=== PATIENT | male | born 1950 | race Hispanic/Latino ===

== ENCOUNTER 2017-08-26 11:08 | Inpatient (IN) | payer OTHER ==
[~2017-08-26] VITALS: Ht 172.7 cm; Wt 103.6 kg
[2017-08-26 16:00] VITALS: BP_SYST 156; BP_SYST 177; BP_DIAS 101; BP_DIAS 106
[2017-08-26 16:14] LABS: APPEARANCE,URINE Clear (CLEAR); BILIRUBIN,URINE Negative (NEGATIVE); COLOR,URINE Yellow (YELLOW); GLUCOSE, URINE (UA) Negative (NEGATIVE); KETONES,URINE Negative (NEGATIVE); LEUKOCYTE ESTERASE ,URINE Negative (NEGATIVE); NITRATE,URINE Negative (NEGATIVE); OCCULT BLOOD,URINE Negative (NEGATIVE); PH,URINE 5.5 (5.0-8.0); PROTEIN,URINE Negative (NEGATIVE)
[2017-08-26 17:05] VITALS: BP 148/89
[2017-08-26] MEDS ORDERED: LEVO150T6 PO (17:26)
[2017-08-26] MEDS ORDERED: BRIM5DRO4 OU (17:26)
[2017-08-26] MEDS ORDERED: SILD100T PO (17:26)
[2017-08-26] MEDS ORDERED: SIMV40TA5 PO (17:26)
[2017-08-26] MEDS ORDERED: LATA2.5D2 OU (17:26)
[2017-08-26] MEDS ORDERED: LANR90SY SQ (17:26)
[2017-08-26] MEDS ORDERED: CITA40TA6 PO (17:26)
[2017-08-26] MEDS ORDERED: TRAZ-185 PO (17:26)
[2017-08-26] MEDS ORDERED: LISI10TA7 PO (17:26)
[2017-08-26] MEDS ORDERED: menthol/m-salicylate TP (17:26)
[2017-08-26] MEDS ORDERED: HYDR10TA14 PO (17:26)
[2017-08-26] MEDS ORDERED: HYDR20TA3 PO (17:26)
[2017-08-26] MEDS ORDERED: testosterone TP (17:28)
[2017-08-29] VITALS (19 sets, daily range): BP systolic 122–176; BP diastolic 72–114
[2017-08-29] MEDS ORDERED: CEFAZOLIN 3GM /D5W 100ML 100 ML IV SCH ×2 (06:00→17:30)
[2017-08-29] MEDS ORDERED: CEFAZOLIN SODIUM 1 GM VIAL ONE ×2 (08:18→08:58)
[2017-08-29] MEDS ORDERED: LACTATED RINGERS 1000ML 1,000 ML IV ONE (08:18)
[2017-08-29] MEDS ORDERED: METOCLOPRAMIDE 10 MG/2 ML VIAL ONE (08:28)
[2017-08-29] MEDS ORDERED: ACETAMINOPHEN EXTRA STRENGTH 500 MG TABLET ONE (08:28)
[2017-08-29] MEDS ORDERED: OXYCODONE HCL 10 MG TAB.SR.12H PO ONE (08:29)
[2017-08-29] MEDS ORDERED: CELECOXIB 200 MG CAP ONE (08:29)
[2017-08-29] MEDS ORDERED: KETOROLAC TROMETHAMINE 15MG/ML ONE (08:32)
[2017-08-29] MEDS ORDERED: EPINEPHRINE 1 MG/ML AMPULE ONE (08:58)
[2017-08-29] MEDS ORDERED: BUPIVACAINE/PF 0.25% 30ML VIAL IJ ONE (08:58)
[2017-08-29] MEDS ORDERED: TRANEXAMIC ACID 1000MG/10ML IV ONE (08:58)
[2017-08-29] MEDS ORDERED: PROPOFOL 10 MG/ML 20ML VIAL IV ONE (09:35)
[2017-08-29] MEDS ORDERED: FENTANYL CITRATE PF 50 MCG/1 ML 5ML AMP IV ONE (09:35)
[2017-08-29] MEDS ORDERED: MIDAZOLAM HCL 1 MG/ML 2ML VIAL ONE (09:35)
[2017-08-29] MEDS ORDERED: ROCURONIUM BROMIDE 10MG/1ML 5ML VL ONE ×2 (09:40→12:28)
[2017-08-29] MEDS ORDERED: NEOSTIGMINE 5MG/5ML SYR IV ONE (09:40)
[2017-08-29] MEDS ORDERED: SUCCINYLCHOLINE CHLORIDE 20 MG/ML 10 ML VIAL ONE ×2 (09:40→12:28)
[2017-08-29] MEDS ORDERED: HYDROCORTISONE SOD SUCCINATE 100 MG/2 ML VIAL ONE (10:37)
[2017-08-29] MEDS ORDERED: PHENYLEPHRINE HCL 10 MG/ML 1ML VIAL IV ONE ×2 (10:39→12:28)
[2017-08-29] MEDS ORDERED: LABETALOL HCL 5 MG/ML 20ML VIAL IV ONE (11:19)
[2017-08-29] MEDS ORDERED: ONDANSETRON HCL 4 MG/2 ML VIAL ONE (12:28)
[2017-08-29] MEDS ORDERED: SODIUM CHLORIDE 0.9% 10 ML VIAL ONE (12:28)
[2017-08-29] MEDS: SODIUM CHLORIDE 0.9% 1000ML 1,000 ML IV SCH (12:29)
[2017-08-29] MEDS ORDERED: POTASSIUM CHLORIDE 20MEQ/100ML 100 ML IV PRN (12:30)
[2017-08-29] MEDS ORDERED: FERROUS FUMARATE 324 MG TABLET PO PRN (12:30)
[2017-08-29] MEDS ORDERED: LIDOCAINE HCL-MPF 1% 2ML VIAL IVP PRN (12:30)
[2017-08-29] MEDS ORDERED: DiphenhydrAMINE HCL 50 MG/ML VIAL IVP PRN (12:30)
[2017-08-29] MEDS ORDERED: ONDANSETRON HCL 4 MG/2 ML VIAL IVP PRN (12:30)
[2017-08-29] MEDS ORDERED: POTASSIUM CHLORIDE 10% ELIXIR 20 MEQ/15 ML UDCUP PO PRN (12:30)
[2017-08-29] MEDS ORDERED: TRAMADOL HCL 50 MG TABLET PO PRN (12:30)
[2017-08-29] MEDS ORDERED: POTASSIUM CHLORIDE 20 MEQ ERTAB PO PRN (12:30)
[2017-08-29] MEDS: ACETAMINOPHEN EXTRA STRENGTH 500 MG TABLET PO SCH ×2 (12:30→21:03)
[2017-08-29] MEDS ORDERED: CALCIUM CARBONATE 500 MG TABLET PO PRN (12:30)
[2017-08-29] MEDS ORDERED: FENTANYL CITRATE PF 50 MCG/1 ML 2ML VIAL ONE (12:32)
[2017-08-29] MEDS ORDERED: RACEPINEPHRINE HCL 2.25% 0.5 ML NEB SOLN ONE (13:06)
[2017-08-29] MEDS ORDERED: NON-FORMULARY MEDICATION 1 EACH (Sildenafil Citrate (Viagra) 100 MG) PO PRN (15:00)
[2017-08-29] MEDS ORDERED: HYDRALAZINE HCL 20 MG/ML VIAL ONE (15:22)
[2017-08-29] MEDS ORDERED: MENTHOL TP PRN (16:15)
[2017-08-29] MEDS ORDERED: METHYL SALICYLATE TP PRN (16:15)
[2017-08-29] MEDS ORDERED: HYDRALAZINE HCL 20 MG/ML VIAL IV SCH (16:35)
[2017-08-29] MEDS ORDERED: CEFAZOLIN SODIUM 1 GM VIAL IVP SCH (17:30)
[2017-08-29] MEDS: HYDROCORTISONE 20 MG TABLET PO SCH (17:57)
[2017-08-29] MEDS: CEFAZOLIN 3GM /D5W 100ML 100 ML IV SCH (17:57)
[2017-08-29] MEDS: ASPIRIN 325 MG TABLET PO SCH (21:01)
[2017-08-29] MEDS: FAMOTIDINE 20MG TAB 20 MG TAB PO SCH (21:01)
[2017-08-29] MEDS: ATORVASTATIN CALCIUM 20 MG TABLET PO SCH (21:01)
[2017-08-29] MEDS: PREGABALIN 25 MG CAP PO SCH (21:02)
[2017-08-29] MEDS: CELECOXIB 200 MG CAP PO SCH (21:02)
[2017-08-29] MEDS: TRAZODONE HCL 50 MG TAB PO SCH (21:02)
[2017-08-29] MEDS: CITALOPRAM 20 MG TABLET PO SCH (21:02)
[2017-08-29] MEDS: BRIMONIDINE TARTRATE 0.2% 5 ML BOTTLE OU SCH (21:07)
[2017-08-29] MEDS: LATANOPROST 2.5 ML DROPS OU SCH (21:07)
[2017-08-30] VITALS (7 sets, daily range): BP systolic 119–159; BP diastolic 86–115
[2017-08-30] MEDS: CEFAZOLIN 3GM /D5W 100ML 100 ML IV SCH (00:30)
[2017-08-30] MEDS: ACETAMINOPHEN EXTRA STRENGTH 500 MG TABLET PO SCH ×3 (03:45→22:15)
[2017-08-30] MEDS: OXYCODONE HCL 5 MG TAB PO PRN ×3 (03:46→16:23)
[2017-08-30] MEDS: KETOROLAC TROMETHAMINE 15MG/ML IV PRN ×3 (04:57→19:46)
[2017-08-30] MEDS: SODIUM CHLORIDE 0.9% 1000ML 1,000 ML IV SCH (05:34)
[2017-08-30 05:48] LABS: MEAN CORPUSCULAR HEMOGLOBIN 32.7 pg (27.0-33.0); MEAN CORPUSCULAR HGB CONC 34.9 g/dL (32.0-36.0); MEAN CORPUSCULAR VOLUME 93.8 fL (79-99); PLATELET COUNT (AUTO) 191 K/uL (130-400); RED BLOOD CELL COUNT(AUTO) 3.84 MIL/uL (4.50-6.20); RED CELL DISTRIBUTION WIDTH 12.6 % (11.0-15.5)
[2017-08-30 05:58] LABS: CREATININE 1.2 mg/dL (0.5-1.5)
[2017-08-30] MEDS: LEVOTHYROXINE 150 MCG TABLET PO SCH (06:32)
[2017-08-30] MEDS: POLYETHYLENE GLYCOL 3350 17 GM POWD.PACK PO SCH (08:25)
[2017-08-30] MEDS: HYDROCORTISONE 20 MG TABLET PO SCH ×2 (08:26→11:39)
[2017-08-30] MEDS: LISINOPRIL 10 MG TABLET PO SCH (08:27)
[2017-08-30] MEDS: FAMOTIDINE 20MG TAB 20 MG TAB PO SCH ×2 (08:27→22:12)
[2017-08-30] MEDS: TAMSULOSIN HCL 0.4 MG CAP.ER.24H PO SCH (08:27)
[2017-08-30] MEDS: PREGABALIN 25 MG CAP PO SCH ×2 (08:27→22:12)
[2017-08-30] MEDS: ASPIRIN 325 MG TABLET PO SCH ×2 (08:27→22:12)
[2017-08-30] MEDS: BRIMONIDINE TARTRATE 0.2% 5 ML BOTTLE OU SCH ×2 (08:27→22:16)
[2017-08-30] MEDS: CELECOXIB 200 MG CAP PO SCH ×2 (08:27→22:12)
[2017-08-30] MEDS: TESTOSTERONE 1.62% TP SCH (08:28)
[2017-08-30] MEDS: CITALOPRAM 20 MG TABLET PO SCH (22:12)
[2017-08-30] MEDS: TRAZODONE HCL 50 MG TAB PO SCH (22:12)
[2017-08-30] MEDS: ATORVASTATIN CALCIUM 20 MG TABLET PO SCH (22:12)
[2017-08-30] MEDS: LATANOPROST 2.5 ML DROPS OU SCH (22:16)
[2017-08-31] MEDS: OXYCODONE HCL 5 MG TAB PO PRN ×2 (02:06→08:37)
[2017-08-31 03:00] VITALS: BP 145/93
[2017-08-31] MEDS: LEVOTHYROXINE 150 MCG TABLET PO SCH (06:14)
[2017-08-31] MEDS: ACETAMINOPHEN EXTRA STRENGTH 500 MG TABLET PO SCH ×2 (06:14→12:24)
[2017-08-31 07:54] VITALS: BP 160/99
[2017-08-31] MEDS: TAMSULOSIN HCL 0.4 MG CAP.ER.24H PO SCH (08:03)
[2017-08-31] MEDS: POLYETHYLENE GLYCOL 3350 17 GM POWD.PACK PO SCH (08:17)
[2017-08-31] MEDS: CELECOXIB 200 MG CAP PO SCH (08:18)
[2017-08-31] MEDS: PREGABALIN 25 MG CAP PO SCH (08:18)
[2017-08-31] MEDS: LISINOPRIL 10 MG TABLET PO SCH (08:18)
[2017-08-31] MEDS: ASPIRIN 325 MG TABLET PO SCH (08:18)
[2017-08-31] MEDS: HYDROCORTISONE 20 MG TABLET PO SCH ×2 (08:19→12:24)
[2017-08-31] MEDS: FAMOTIDINE 20MG TAB 20 MG TAB PO SCH (08:19)
[2017-08-31] MEDS: BRIMONIDINE TARTRATE 0.2% 5 ML BOTTLE OU SCH (08:20)
[2017-08-31] MEDS: TESTOSTERONE 1.62% TP SCH (08:22)
[2017-08-31] MEDS ORDERED: HYDR-309 PO (11:54)
[2017-08-31] MEDS ORDERED: ASPI-1012 PO (11:54)
[2017-08-31 12:15] VITALS: BP 138/80
[2017-09-01] MEDS ORDERED: BISACODYL 10 MG SUPP.RECT RC PRN (12:30)
[2017-09-26] MEDS ORDERED: LANREOTIDE SQ SCH (09:00)
== END 2017-08-31 16:15 | disposition home health service (06) | DRG 470 ==
LOC: EDSTATUS 16:00 → DAHIP 08-29 07:08 → 4AH 08-29 13:02
PROVIDERS: ADMIT Orthopaedic Surgery; ATTEND Orthopaedic Surgery
PROC: 0SRD0J9 Replacement of Left Knee Joint with Synthetic Substitute, Cemented, Open Approach (ICD-10-PCS; principal; 2017-08-29 11:09)
DX: M17.12 Unilateral primary osteoarthritis, left knee (principal); F32.9 Major depressive disorder, single episode, unspecified; E89.3 Postprocedural hypopituitarism; G89.29 Other chronic pain
CPT/HCPCS: 36415; 80048; 81003; 85027; 88305; 88311; 96374; 96375; A4218; J0171; J0330; J0360; J0690; J1720; J1885; J2250; J2370; J2405; J2704; J2710; J2765; J3010; J3490; J7120

== ENCOUNTER 2019-01-04 12:59 | Inpatient (IN) | payer OTHER ==
[~2019-01-04] VITALS: Ht 172.7 cm; Wt 98.8 kg
[2019-01-04] VITALS (32 sets, daily range): BP systolic 70–151; BP diastolic 30–96
[~2019-01-04 12:59] MED LIST: ASPI-1012 PO; BRIM5DRO4 OU; CITA40TA6 PO; ETOMIDATE 2 MG/ML 10 ML VIAL ONE; HYDR-3894 PO; LATA7.5D OU; LEVO150T6 PO; LISI-613 PO; NAPR-1023 PO; RANI-643 PO; SIMV80TA91 PO; SUCCINYLCHOLINE CHLORIDE 20 MG/ML 10 ML VIAL ONE; TRAZ-185 PO; testosterone TP
[2019-01-04] MEDS ORDERED: DiphenhydrAMINE HCL 50 MG/ML VIAL ONE (13:01)
[2019-01-04] MEDS ORDERED: METHYLPREDNISOLONE SOD SUCC 125MG/2ML VIAL ONE (13:02)
[2019-01-04] MEDS ORDERED: RACEPINEPHRINE HCL 2.25% 0.5 ML NEB SOLN ONE ×3 (13:05→14:06)
[2019-01-04] MEDS ORDERED: EPINEPHRINE 1 MG/ML AMPULE ONE ×2 (13:05→14:12)
[2019-01-04] MEDS ORDERED: FAMOTIDINE/PF 20 MG/2 ML VIAL IV ONE (13:10)
[2019-01-04] MEDS ORDERED: IPRATROPIUM/ALBUTEROL SULFATE 3 ML SOLUTION IH ONE (13:11)
[2019-01-04 13:23] LABS: BASOPHILS % (AUTO) 0.7 % (0.0-5.0); HEMATOCRIT 46.1 % (42-54); LYMPHOCYTES % (AUTO) 21.6 % (21.0-51.0); MEAN CORPUSCULAR HGB CONC 34.1 g/dL (32.0-36.0); MEAN CORPUSCULAR VOLUME 96.7 fL (79-99); MONOCYTES % (AUTO) 5.1 % (3.0-13.0); NEUTROPHILS % (AUTO) 71.6 % (40.0-77.0); PLATELET COUNT (AUTO) 258 K/uL (130-400); RED BLOOD CELL COUNT(AUTO) 4.76 MIL/uL (4.50-6.20); RED CELL DISTRIBUTION WIDTH 13.3 % (11.0-15.5); WHITE BLOOD COUNT (AUTO) 15.3 K/uL (4.8-10.8)
[2019-01-04 13:33] LABS: CREATININE 3.2 mg/dL (0.5-1.5); POTASSIUM 4.3 mmol/L (3.5-5.1)
[2019-01-04 13:34] LABS: INR 1.04 (0.85-1.15); PARTIAL THROMBOPLASTIN TIME 27.9 SEC (26.3-35.5); PROTHROMBIN TIME 10.9 SEC (9.6-11.6)
[2019-01-04 13:46] LABS: BILIRUBIN,DIRECT 0.2 mg/dL (0.0-0.3); BILIRUBIN,TOTAL 0.6 mg/dL (0.2-1.0)
[2019-01-04 13:47] LABS: ALBUMIN 4.4 g/dL (3.5-5.0); TOTAL PROTEIN, SERUM 8.1 g/dL (6.0-8.3)
[2019-01-04 13:53] LABS: B-TYPE NATRIURETIC PEPTIDE 29 pg/mL (0-100)
[2019-01-04] MEDS ORDERED: MIDAZOLAM HCL 1 MG/ML 2ML VIAL ONE ×3 (14:30→14:43)
[2019-01-04] MEDS ORDERED: FENTANYL CITRATE PF 50 MCG/1 ML 2ML VIAL ONE (14:33)
[2019-01-04] MEDS ORDERED: PROPOFOL 1000 MG/100 ML 100 ML IV ONE ×2 (15:02→16:20)
[2019-01-04] MEDS ORDERED: PROPOFOL 10 MG/ML 20ML VIAL IV ONE ×2 (15:03→15:27)
[2019-01-04] MEDS ORDERED: LIDOCAINE 1%-EPI 1:100,000 20 ML VIAL IJ ONE (15:18)
[2019-01-04] MEDS ORDERED: PHENYLEPHRINE HCL 10 MG/ML 1ML VIAL IV ONE ×2 (15:41→16:07)
[2019-01-04] MEDS ORDERED: SODIUM CHLORIDE 0.9% 10 ML VIAL ONE (15:41)
[2019-01-04] MEDS ORDERED: DEXMEDETOMIDINE HCL 200 MCG in SODIUM CHLORIDE 0.9% 48 ML IV SCH (15:45)
[2019-01-04] MEDS ORDERED: EPHEDRINE SULFATE 50 MG/ML AMPULE ONE (15:54)
[2019-01-04] MEDS ORDERED: FENTANYL 2500MCG+NS 250ML 250 ML IV PRN ×2 (16:00→18:00)
[2019-01-04] MEDS ORDERED: PROPOFOL 1000 MG/100 ML 100 ML IV PRN (16:00)
[2019-01-04] MEDS: SODIUM CHLORIDE 0.9% 1000ML 1,000 ML IV SCH ×2 (16:25→17:58)
--- NOTE | 2019-01-04 17:30 | NUR ---
REC'D FROM OR, S/P EMERGENCY TRACHEOSTOMY CREATION. TRACHE SITE WNL, PLACED ON ORDER VENT SETTINGS: SIMV RATE 14, TV 600, PS 10, PEEP 5, FIO2 100%, O2 SAT NOTED AT 100%
[2019-01-04] MEDS ORDERED: ASPI-555 PO (17:54)
[2019-01-04] MEDS ORDERED: METF-446 PO (17:54)
[2019-01-04] MEDS: METHYLPREDNISOLONE SOD SUCC 40MG/ML 1ML IVP SCH ×2 (17:59→21:14)
[2019-01-04] MEDS ORDERED: PHENYLEPHRINE HCL 50 MG/NS 250ML IV PRN ×2 (18:00)
[2019-01-04] MEDS ORDERED: PHENYLEPHRINE HCL 10/NS 250ML IV PRN ×2 (18:00)
[2019-01-04] MEDS: INSULIN HUMULIN R 100 UNIT/ML 3ML SQ SCH (18:00)
[2019-01-04 18:19] LABS: ABG BASE EXCESS -3.2 mmol/L (-2.0-3.0); ABG OXYGEN SATURATION 99.7 % (95.0-99.0); ABG PCO2 40 mmHg (35-48)
[2019-01-04] MEDS ORDERED: FAMOTIDINE/PF 20 MG/2 ML VIAL IV SCH (21:00)
[2019-01-04] MEDS: PROPOFOL 1000 MG/100 ML 100 ML IV PRN (21:02)
[2019-01-04] MEDS: FAMOTIDINE/PF 20 MG/2 ML VIAL IV SCH (21:14)
[2019-01-04] MEDS: DiphenhydrAMINE HCL 50 MG/ML VIAL IV SCH (21:15)
[2019-01-05] VITALS (55 sets, daily range): BP systolic 91–167; BP diastolic 56–104
[2019-01-05] MEDS: INSULIN HUMULIN R 100 UNIT/ML 3ML SQ SCH ×4 (00:50→17:34)
[2019-01-05] MEDS: PROPOFOL 1000 MG/100 ML 100 ML IV PRN ×4 (00:51→09:52)
[2019-01-05] MEDS: SODIUM CHLORIDE 0.9% 1000ML 1,000 ML IV SCH ×4 (03:34→23:38)
[2019-01-05] MEDS: METHYLPREDNISOLONE SOD SUCC 40MG/ML 1ML IVP SCH ×4 (03:34→21:26)
[2019-01-05 03:46] LABS: HEMATOCRIT 39.3 % (42-54); LYMPHOCYTES % (AUTO) 7.6 % (21.0-51.0); MEAN CORPUSCULAR HEMOGLOBIN 33.6 pg (27.0-33.0); MEAN CORPUSCULAR HGB CONC 34.4 g/dL (32.0-36.0); MEAN CORPUSCULAR VOLUME 97.5 fL (79-99); NEUTROPHILS % (AUTO) 89.4 % (40.0-77.0); PLATELET COUNT (AUTO) 194 K/uL (130-400); RED BLOOD CELL COUNT(AUTO) 4.03 MIL/uL (4.50-6.20); RED CELL DISTRIBUTION WIDTH 13.2 % (11.0-15.5); WHITE BLOOD COUNT (AUTO) 12.6 K/uL (4.8-10.8)
[2019-01-05 04:03] LABS: CREATININE 2.2 mg/dL (0.5-1.5); POTASSIUM 5.3 mmol/L (3.5-5.1)
[2019-01-05 04:11] LABS: ABG BASE EXCESS -1.8 mmol/L (-2.0-3.0); ABG HCO3 23.6 mmol/L (21.0-28.0); ABG OXYGEN SATURATION 95.2 % (95.0-99.0); ABG PCO2 43 mmHg (35-48)
[2019-01-05] MEDS: DiphenhydrAMINE HCL 50 MG/ML VIAL IV SCH ×3 (05:53→21:26)
[2019-01-05] MEDS ORDERED: ENOXAPARIN SODIUM 30 MG/0.3 ML SQ SCH (09:00)
[2019-01-05] MEDS ORDERED: LISI40TA4 PO (09:30)
[2019-01-05 14:56] LABS: ABG BASE EXCESS 0.3 mmol/L (-2.0-3.0); ABG HCO3 20.3 mmol/L (21.0-28.0); ABG OXYGEN SATURATION 99.4 % (95.0-99.0); ABG PCO2 23 mmHg (35-48)
[2019-01-05] MEDS: LORAZEPAM 2 MG/ML 1 ML VIAL IVP PRN (15:59)
--- NOTE | 2019-01-05 17:07 | NUR ---
DC PLAN VISITED WITH PATIENT. PATIENT LIVES WITH SPOUSE. INDEPENDENT ABLE TO PERFORM ADL'S. PATIENT HAS NO SERVICES OR DME'S. PLAN TO DC HOME. PATIENT IS NOW TRACHED. WILL NEED HOME HEALTH FOR NEW TRACHEA AND EQUIPMENT. [facility] IS [facility]. PER [facility] % WITH [facility] IF NOT CAN USE [facility] [id number]. ASKED NURSE WHEN PATIENT WILL BE READY PROBABLY NOT TILL NEXT WEEK NEED TRACHEA TO HEAL AND BE STABLE PRIOR TO DISCHARGE. Addendum: 01/05/19 at 1710 by MILAGROS BECKER RN CM Amended: Links added.
--- NOTE | 2019-01-05 19:58 | NUR ---
pt taken off vent and placed on trach-collar fio2 40% as per Dr Gloria orders, no distress or dyspnea noted,saturation 100%
[2019-01-05] MEDS: FAMOTIDINE/PF 20 MG/2 ML VIAL IV SCH (20:05)
[2019-01-05] MEDS: SIMVASTATIN 20 MG TABLET PO SCH (20:05)
[2019-01-05] MEDS: TRAZODONE HCL 50 MG TAB PO SCH (20:05)
[2019-01-06] VITALS (24 sets, daily range): BP systolic 127–161; BP diastolic 77–101
[2019-01-06] MEDS: METHYLPREDNISOLONE SOD SUCC 40MG/ML 1ML IVP SCH ×2 (03:15→10:35)
[2019-01-06 03:41] LABS: HEMATOCRIT 39.6 % (42-54); MEAN CORPUSCULAR HEMOGLOBIN 33.1 pg (27.0-33.0); MEAN CORPUSCULAR HGB CONC 34.6 g/dL (32.0-36.0); MEAN CORPUSCULAR VOLUME 95.6 fL (79-99); PLATELET COUNT (AUTO) 215 K/uL (130-400); RED BLOOD CELL COUNT(AUTO) 4.14 MIL/uL (4.50-6.20); RED CELL DISTRIBUTION WIDTH 13.3 % (11.0-15.5); WHITE BLOOD COUNT (AUTO) 17.5 K/uL (4.8-10.8)
[2019-01-06 03:58] LABS: CREATININE 2.1 mg/dL (0.5-1.5)
[2019-01-06] MEDS: DiphenhydrAMINE HCL 50 MG/ML VIAL IV SCH (05:11)
[2019-01-06] MEDS: INSULIN HUMULIN R 100 UNIT/ML 3ML SQ SCH ×4 (06:00→18:00)
[2019-01-06] MEDS: LEVOTHYROXINE 150 MCG TABLET PO SCH (06:16)
--- NOTE | 2019-01-06 06:45 | NUR ---
BLEEDING PT WITH FORCEFUL COUGHING AND BEGAN BLEEDING FROM TRACH SITE. SLIGHT PRESSURE PLACED ON SITE BUT CONTINUED TO BLEED. DR. SALTER PAGED AT THIS TIME.
--- NOTE | 2019-01-06 07:00 | NUR ---
STATUS BLEEDING SEEMS TO HAVE STABILIZED NONE NOTED AT THIS TIME. WILL CONTINUE TO MONITOR AND PASS ON REPORT.
--- NOTE | 2019-01-06 07:11 | NUR ---
JOSÉ MIGUEL OFFICE SPOKE WITH NURSE WHO RELAYED BLEEDING TO DR. IRMA EASTMAN OK TO USE SURGICEL IF NEEDED. WILL RELAY TO DAYSHIFT.
[2019-01-06] MEDS ORDERED: ASPIRIN 81 MG EC TAB PO SCH (09:00)
[2019-01-06] MEDS ORDERED: HYDROCODONE/ACETAMINOPHEN 5/325 MG TAB PO PRN (13:00)
[2019-01-06] MEDS: SODIUM CHLORIDE 0.9% 1000ML 1,000 ML IV SCH (13:35)
[2019-01-06] MEDS: TRAZODONE HCL 50 MG TAB PO SCH (19:58)
[2019-01-06] MEDS: SIMVASTATIN 20 MG TABLET PO SCH (19:58)
[2019-01-06] MEDS: FAMOTIDINE 20MG TAB 20 MG TAB PO SCH (19:59)
[2019-01-06] MEDS: LORAZEPAM 2 MG/ML 1 ML VIAL IVP PRN (19:59)
[2019-01-06] MEDS ORDERED: MIDODRINE HCL 5 MG TABLET PO SCH (21:00)
[2019-01-07] VITALS (16 sets, daily range): BP systolic 132–188; BP diastolic 88–109
[2019-01-07] MEDS: LORAZEPAM 2 MG/ML 1 ML VIAL IVP PRN (02:44)
[2019-01-07] MEDS: SODIUM CHLORIDE 0.9% 1000ML 1,000 ML IV SCH ×2 (04:13→19:34)
[2019-01-07 04:31] LABS: CREATININE 1.5 mg/dL (0.5-1.5); POTASSIUM 3.8 mmol/L (3.5-5.1)
[2019-01-07 04:37] LABS: HEMATOCRIT 38.7 % (42-54); MEAN CORPUSCULAR HEMOGLOBIN 33.2 pg (27.0-33.0); MEAN CORPUSCULAR VOLUME 97.5 fL (79-99); PLATELET COUNT (AUTO) 202 K/uL (130-400); RED BLOOD CELL COUNT(AUTO) 3.97 MIL/uL (4.50-6.20); RED CELL DISTRIBUTION WIDTH 13.5 % (11.0-15.5); WHITE BLOOD COUNT (AUTO) 16.4 K/uL (4.8-10.8)
[2019-01-07 05:52] LABS: BAND NEUTROPHILS % (MANUAL) 4 % (0-2); LYMPHOCYTES % (MANUAL) 14 % (22-44); MAN.DIFF COMMENT-IMPRESSION MANUAL DIFFERENTIAL; MONOCYTES % (MANUAL) 6 % (2-9); PLATELET MORPHOLOGY COMMENT ADEQUATE; REACTIVE LYMPHOCYTES 1 % (0-0); SEGMENTED NEUTROPHILS % 75 % (40-70)
[2019-01-07] MEDS: INSULIN HUMULIN R 100 UNIT/ML 3ML SQ SCH ×4 (06:00→18:00)
[2019-01-07] MEDS: LEVOTHYROXINE 150 MCG TABLET PO SCH (06:26)
[2019-01-07] MEDS: PREDNISONE 20 MG TABLET PO SCH (09:52)
[2019-01-07 10:00] LABS: ABG BASE EXCESS 0.3 mmol/L (-2.0-3.0); ABG HCO3 23.9 mmol/L (21.0-28.0); ABG OXYGEN SATURATION 88.2 % (95.0-99.0); ABG PCO2 36 mmHg (35-48)
[2019-01-07] MEDS: HYDRALAZINE HCL 20 MG/ML VIAL IV PRN (10:06)
[2019-01-07] MEDS ORDERED: FUROSEMIDE 10 MG/ML 4ML VIAL IV SCH (12:15)
[2019-01-07] MEDS: AMLODIPINE BESYLATE 5 MG TAB PO SCH (14:27)
[2019-01-07] MEDS: LEVOFLOXACIN 750 MG/D5W 150 ML 150 ML IV SCH (14:27)
[2019-01-07] MEDS: ACETAMINOPHEN 325 MG TAB PO PRN (16:09)
--- NOTE | 2019-01-07 16:24 | NUR ---
INTERVENTION/ SPUTUM WAS DONE BY RAMONE CROWE Addendum: 01/07/19 at 1625 by RAMONE CROWE, RT RT Amended: Links added.
[2019-01-07] MEDS: TRAZODONE HCL 50 MG TAB PO SCH (20:29)
[2019-01-07] MEDS: SIMVASTATIN 20 MG TABLET PO SCH (20:29)
[2019-01-07] MEDS: FAMOTIDINE 20MG TAB 20 MG TAB PO SCH (20:29)
[2019-01-08] VITALS (19 sets, daily range): BP systolic 127–164; BP diastolic 67–109
[2019-01-08 03:57] LABS: HEMATOCRIT 39.6 % (42-54); MEAN CORPUSCULAR HEMOGLOBIN 33.5 pg (27.0-33.0); MEAN CORPUSCULAR HGB CONC 34.4 g/dL (32.0-36.0); MEAN CORPUSCULAR VOLUME 97.3 fL (79-99); PLATELET COUNT (AUTO) 205 K/uL (130-400); RED BLOOD CELL COUNT(AUTO) 4.07 MIL/uL (4.50-6.20); RED CELL DISTRIBUTION WIDTH 13.3 % (11.0-15.5); WHITE BLOOD COUNT (AUTO) 15.1 K/uL (4.8-10.8)
[2019-01-08 04:06] LABS: CREATININE 1.4 mg/dL (0.5-1.5); POTASSIUM 3.7 mmol/L (3.5-5.1)
[2019-01-08 04:58] LABS: B-TYPE NATRIURETIC PEPTIDE 192 pg/mL (0-100)
[2019-01-08 05:46] LABS: BAND NEUTROPHILS % (MANUAL) 2 % (0-2); LYMPHOCYTES % (MANUAL) 6 % (22-44); MAN.DIFF COMMENT-IMPRESSION MANUAL DIFFERENTIAL; MONOCYTES % (MANUAL) 5 % (2-9); PLATELET MORPHOLOGY COMMENT ADEQUATE; REACTIVE LYMPHOCYTES 1 % (0-0); SEGMENTED NEUTROPHILS % 86 % (40-70)
[2019-01-08] MEDS: INSULIN HUMULIN R 100 UNIT/ML 3ML SQ SCH ×5 (06:00→23:52)
[2019-01-08] MEDS: LEVOTHYROXINE 150 MCG TABLET PO SCH (06:27)
[2019-01-08] MEDS: SODIUM CHLORIDE 0.9% 1000ML 1,000 ML IV SCH (08:37)
[2019-01-08] MEDS: PREDNISONE 20 MG TABLET PO SCH (08:38)
[2019-01-08] MEDS: AMLODIPINE BESYLATE 5 MG TAB PO SCH (08:38)
[2019-01-08] MEDS ORDERED: LEVOFLOXACIN 750 MG/D5W 150 ML 150 ML IV SCH (09:00)
[2019-01-08] MEDS: HYDRALAZINE HCL 20 MG/ML VIAL IV PRN (10:59)
--- NOTE | 2019-01-08 13:05 | NUR ---
HOLD EVALUATION. Pt S/P TRACHEOSTOMY. Pt CURRENTLY ON A PORTEX SIZE 8. Pt WITH INCREASED SECRETIONS AT THIS TIME AND CONSTANT COUGHING UP PHLEM. EVALUATION IS RECOMMENDED TO BE HELD AT THIS TIME. PLAN OF CARE IS FOR PMV TRIALS WITH P.O. TRIALS IF ABLE TO TOLERATE PMV FOR 30 MINUTES. COMPENSATION COORDINATOR STATED PLAN OF CARE TO Pt AND . THEY VERBALIZED UNDERSTANDING AND COMPLIANCE. COMPENSATION COORDINATOR COORDINATED CARE WITH NURSE MARIJA. Addendum: 01/08/19 at 1308 by MARCELO HILL [facility] Amended: Links added.
[2019-01-08] MEDS: LEVOFLOXACIN 750 MG/D5W 150 ML 150 ML IV SCH ×2 (13:30)
--- NOTE | 2019-01-08 18:53 | NUR ---
At about this time lavaged patient due to to much coughing did suction out a small mucous plug. Addendum: 01/08/19 at 1855 by SHERRELL MAURICIO RT Amended: Links added.
[2019-01-08] MEDS ORDERED: COMPOUND IV REFRIGERATED 1 EACH IVSOLN MISC PRN (19:00)
[2019-01-08] MEDS ORDERED: VANCOMYCIN 1.75 GM in SODIUM CHLORIDE 0.9% 250 ML IV ONE (19:00)
[2019-01-08] MEDS ORDERED: VANCOMYCIN PROTOCOL PER PHARMACY IV SCH (20:00)
[2019-01-08] MEDS: TRAZODONE HCL 50 MG TAB PO SCH (20:15)
[2019-01-08] MEDS: FAMOTIDINE 20MG TAB 20 MG TAB PO SCH (20:15)
[2019-01-08] MEDS: SIMVASTATIN 20 MG TABLET PO SCH (20:15)
[2019-01-08] MEDS: LORAZEPAM 2 MG/ML 1 ML VIAL IVP PRN (20:20)
[2019-01-09] VITALS (19 sets, daily range): BP systolic 108–174; BP diastolic 64–104
[2019-01-09] MEDS: SODIUM CHLORIDE 0.9% 1000ML 1,000 ML IV SCH (00:01)
[2019-01-09 03:43] LABS: BASOPHILS % (AUTO) 0.3 % (0.0-5.0); EOSINOPHILS % (AUTO) 0.2 % (0.0-8.0); HEMATOCRIT 38.9 % (42-54); LYMPHOCYTES % (AUTO) 12.5 % (21.0-51.0); MEAN CORPUSCULAR HEMOGLOBIN 33.1 pg (27.0-33.0); MEAN CORPUSCULAR VOLUME 97.4 fL (79-99); PLATELET COUNT (AUTO) 207 K/uL (130-400); RED BLOOD CELL COUNT(AUTO) 3.99 MIL/uL (4.50-6.20); RED CELL DISTRIBUTION WIDTH 12.9 % (11.0-15.5); WHITE BLOOD COUNT (AUTO) 12.6 K/uL (4.8-10.8)
[2019-01-09 03:59] LABS: CREATININE 1.4 mg/dL (0.5-1.5); MAGNESIUM 1.4 mg/dL (1.80-2.40); PHOSPHORUS 2.5 mg/dL (2.5-4.9); POTASSIUM 3.6 mmol/L (3.5-5.1)
[2019-01-09] MEDS: INSULIN HUMULIN R 100 UNIT/ML 3ML SQ SCH ×4 (05:34→20:08)
[2019-01-09] MEDS: LEVOTHYROXINE 150 MCG TABLET PO SCH (05:40)
[2019-01-09] MEDS: VANCOMYCIN 750MG + NS 250 ML IV SCH ×4 (05:40→17:45)
[2019-01-09 07:49] LABS: ABG BASE EXCESS -0.7 mmol/L (-2.0-3.0); ABG HCO3 22.8 mmol/L (21.0-28.0); ABG OXYGEN SATURATION 86.8 % (95.0-99.0); ABG PCO2 35 mmHg (35-48)
[2019-01-09] MEDS: AMLODIPINE BESYLATE 5 MG TAB PO SCH (08:00)
[2019-01-09] MEDS: PREDNISONE 20 MG TABLET PO SCH (08:00)
[2019-01-09] MEDS ORDERED: HYDR25TA PO (09:12)
[2019-01-09] MEDS: SCOPOLAMINE HYDROBROMIDE 1 EACH ADH..PATCH TD SCH (09:25)
[2019-01-09] MEDS ORDERED: SILD100T PO (09:31)
[2019-01-09] MEDS ORDERED: BUSP10TA3 PO (09:31)
[2019-01-09] MEDS ORDERED: MAGNESIUM 2GM PREMIX 50ML 50 ML IV PRN (10:15)
--- NOTE | 2019-01-09 11:45 | NUR ---
DYSPHAGIA EVAL COMPLETED. -S/S OF ASPIRATION. RECOMMEND MECHANICAL SOFT/CHOPPED, THIN LIQUIDS; PILLS WHOLE WITH LIQUIDS; PMV IN PLACE AT THE TIME OF THE EVALUATION. Addendum: 01/09/19 at 1630 by MARCELO HILL, [facility] Amended: Links added.
--- NOTE | 2019-01-09 12:00 | NUR ---
PMV TRIAL COMPLETED. Pt WITH ADEQUATE TOLERANCE. NO OVERT S/S OF DISTRESS OR DESATURATION NOTED. Pt WITH COUGHING DURING TRIAL WITH STRONG BURST OF AIR. PAINT BOOTH OPERATOR EDUCATED AND Pt ON PLACEMENT AND REMOVAL OF VALVE, HOW TO CLEAN THE VALVE, USE DURING P.O. AND REMOVAL WHEN Pt IS SLEEPING. WARNING STICKERS PLACED ON TRACHEOSTOMY TUBE INFLATION LINE. PAINT BOOTH OPERATOR EDUCATED ON PMB PLACEMENT WHEN CUFF WAS DEFLATED (Pt HAS NOT BEEN ON VENT). ALL QUESTIONS ANSWERED AT THIS TIME. Addendum: 01/09/19 at 1638 by MARCELO HILL, [facility] Amended: Links added.
[2019-01-09] MEDS: LEVOFLOXACIN 750 MG/D5W 150 ML 150 ML IV SCH (14:49)
[2019-01-09] MEDS: HYDRALAZINE HCL 25 MG TABLET PO SCH ×2 (14:49→20:07)
[2019-01-09] MEDS: FAMOTIDINE 20MG TAB 20 MG TAB PO SCH (20:06)
[2019-01-09] MEDS: SIMVASTATIN 20 MG TABLET PO SCH (20:06)
[2019-01-09] MEDS: CITALOPRAM 20 MG TABLET PO SCH (20:06)
[2019-01-09] MEDS: TRAZODONE HCL 50 MG TAB PO SCH (20:08)
[2019-01-09] MEDS: LORAZEPAM 2 MG/ML 1 ML VIAL IVP PRN (22:43)
--- NOTE | 2019-01-09 23:45 | NUR ---
TRANSFERRED PATIENT TRANSFERRED FROM ICU TO ROOM 222. ALERT AND ORIENTED X3. NO COMPLAINTS OF PAIN. NO SHORTNESS OF BREATH. NO SIGNS OF DISTRESS. PATIENT HAS A TRACH IN PLACE TO OXYGEN. CALL LIGHT, BELONGINGS, BEDSIDE TABLE ALL WITHIN REACH. SPIVEY IN PLACE AT BEDSIDE PATENT AND DRAINING. NO QUESTIONS, CONCERNS, OR NEEDS AT THIS TIME.
[2019-01-10 04:00] VITALS: BP 142/93
[2019-01-10 04:40] LABS: HEMATOCRIT 35.1 % (42-54); MEAN CORPUSCULAR HEMOGLOBIN 33.7 pg (27.0-33.0); MEAN CORPUSCULAR HGB CONC 35.2 g/dL (32.0-36.0); MEAN CORPUSCULAR VOLUME 95.7 fL (79-99); PLATELET COUNT (AUTO) 236 K/uL (130-400); RED BLOOD CELL COUNT(AUTO) 3.67 MIL/uL (4.50-6.20); RED CELL DISTRIBUTION WIDTH 12.9 % (11.0-15.5); WHITE BLOOD COUNT (AUTO) 10.5 K/uL (4.8-10.8)
[2019-01-10 04:44] LABS: ALBUMIN 2.5 g/dL (3.5-5.0); CREATININE 1.4 mg/dL (0.5-1.5); CRP QUANTITATIVE 102.4 mg/L (0.00-9.0); HEMOGLOBIN A1C 6.4 % (4.0-6.0); MAGNESIUM 1.6 mg/dL (1.80-2.40); POTASSIUM 3.9 mmol/L (3.5-5.1)
[2019-01-10] MEDS: INSULIN HUMULIN R 100 UNIT/ML 3ML SQ SCH ×3 (05:48→17:28)
[2019-01-10] MEDS: VANCOMYCIN 1GM+NS 250ML 250 ML IV SCH ×2 (06:45→18:25)
[2019-01-10] MEDS: LEVOTHYROXINE 150 MCG TABLET PO SCH (06:46)
[2019-01-10 07:17] VITALS: BP 155/96
--- NOTE | 2019-01-10 09:30 | NUR ---
PMV TRIAL. Pt COMPLAINS THAT PMV IS RESTRICTING HIS AIR. Pt STATES THAT HE IS HAVING MORE DIFFICULTY WITH IT TODAY. UPON ARRIVAL PRODUCTION GEAR CUTTER NOTICED BLOOD IN BAND SAW OPERATOR BALLOON. RESPIRATORY THERAPIST WAS CALLED. BAND SAW OPERATOR BALLOON WAS DEFLATED AND BLOOD WAS REMOVED, RT INSPECTED TRACH. Pt TOLERATED 2 TRIALS OF PMV 7MIN AND 8MIN TOTAL. Pt WITH COMPLAINS OF DIFFICULTY BREATHING. Pt REPORTS THAT HE FEELS LIKE HE HAS MORE SECRETIONS THAN YESTERDAY. Pt WITH NO OVERT DESATURATION OR CHANGE IN COLOR. Pt WITH BP OF 120/86 DURING THE TRIAL. PRODUCTION GEAR CUTTER EDUCATED Pt AND ON USE AND CARE OF PMV. Pt COMPLETED DIAPHRAGMATIC BREATHING EXERCISES WITH 80% ACCURACY. Pt PHONATING IN 2-3 WORD UTTERANCES BEFORE RUNNING OUT OF BREATH. RECOMMEND CONTINUED SKILLED SPEECH THERAPY TOLERATED BY Pt. Addendum: 01/10/19 at 1253 by MARCELO HILL [facility] Amended: Links added.
--- NOTE | 2019-01-10 09:45 | NUR ---
SWALLOWING TREATMENT STATE MANAGER PROVIDED THERAPEUTIC TRIALS OF THIN LIQUIDS AND SOLIDS DURING THE SESSION WITH NO OVERT S/S OF ASPIRATION. TRIALS WERE COMPLETED WITH PMV AND WITHOUT PMV IN PLACE. NO OVERT S/S OF DISTRESS NOTED DURING THE SESSION. RECOMMEND CONTINUED P.O. OF MECHANICAL SOFT/CHOPPED, THIN LIQUIDS, PILLS WHOLE WITH LIQUIDS. Addendum: 01/10/19 at 1256 by MARCELO HILL, [facility] Amended: Links added.
[2019-01-10] MEDS: PREDNISONE 20 MG TABLET PO SCH (09:51)
[2019-01-10] MEDS: AMLODIPINE BESYLATE 5 MG TAB PO SCH (09:51)
[2019-01-10] MEDS: HYDRALAZINE HCL 25 MG TABLET PO SCH ×3 (09:52→21:59)
[2019-01-10] MEDS: MAGNESIUM 2GM PREMIX 50ML 50 ML IV PRN (10:58)
[2019-01-10 11:11] VITALS: BP 128/86
[2019-01-10] MEDS ORDERED: SODIUM CHLORIDE 0.9% 250 ML IV ONE (11:12)
[2019-01-10] MEDS: LEVOFLOXACIN 750 MG/D5W 150 ML 150 ML IV SCH (14:20)
[2019-01-10 15:38] VITALS: BP 158/101
--- NOTE | 2019-01-10 18:55 | NUR ---
DC PLAN SPOKE TO DR. KOLB THINKS PATIENT COULD BE CLOSE FOR DISCHARGE IN NEXT 48 TO 72 HRS. INFO SENT TO [place] FOR TRACHE SUPPLIES AND MAITANENCE. SUCTION DME. HOME HEALTH FOR OT/PT. Addendum: 01/10/19 at 1856 by MILAGROS BECKER RN CM Amended: Links added.
[2019-01-10] MEDS: ACETYLCYSTEINE 20% 200MG/ML 4ML VIAL IH SCH ×2 (19:36→23:32)
[2019-01-10] MEDS: IPRATROPIUM/ALBUTEROL SULFATE 3 ML SOLUTION IH SCH ×2 (19:36→23:32)
[2019-01-10 20:25] VITALS: BP 152/97
[2019-01-10] MEDS: TRAZODONE HCL 50 MG TAB PO SCH (21:58)
[2019-01-10] MEDS: CITALOPRAM 20 MG TABLET PO SCH (21:58)
[2019-01-10] MEDS: SIMVASTATIN 20 MG TABLET PO SCH (21:59)
[2019-01-10] MEDS: FAMOTIDINE 20MG TAB 20 MG TAB PO SCH (21:59)
[2019-01-11] VITALS (7 sets, daily range): BP systolic 130–166; BP diastolic 81–105
--- NOTE | 2019-01-11 05:25 | NUR ---
Patient resting bed. C/O excess secretions. SOB only with cough or secretions. Patient suctions himself without complications. Trach collar in place. CPT and Nebs given by RT. Tolerates well.
[2019-01-11] MEDS: ACETYLCYSTEINE 20% 200MG/ML 4ML VIAL IH SCH ×4 (05:26→23:28)
[2019-01-11] MEDS: IPRATROPIUM/ALBUTEROL SULFATE 3 ML SOLUTION IH SCH (05:26)
[2019-01-11] MEDS: VANCOMYCIN 1GM+NS 250ML 250 ML IV SCH ×2 (05:52→17:24)
[2019-01-11] MEDS: LEVOTHYROXINE 150 MCG TABLET PO SCH (05:52)
[2019-01-11] MEDS: INSULIN HUMULIN R 100 UNIT/ML 3ML SQ SCH ×5 (06:00→21:00)
[2019-01-11] MEDS: METFORMIN HCL 500 MG TABLET PO SCH ×3 (08:23→17:24)
[2019-01-11] MEDS: AMLODIPINE BESYLATE 5 MG TAB PO SCH (08:24)
[2019-01-11] MEDS: BUSPIRONE HCL 5 MG TABLET PO SCH ×2 (08:24→21:07)
[2019-01-11] MEDS: HYDRALAZINE HCL 25 MG TABLET PO SCH ×3 (08:24→21:16)
[2019-01-11] MEDS: PREDNISONE 20 MG TABLET PO SCH (08:24)
[2019-01-11 09:09] LABS: BASOPHILS % (AUTO) 0.2 % (0.0-5.0); EOSINOPHILS % (AUTO) 0.8 % (0.0-8.0); HEMATOCRIT 37.3 % (42-54); LYMPHOCYTES % (AUTO) 19.2 % (21.0-51.0); MEAN CORPUSCULAR HEMOGLOBIN 32.8 pg (27.0-33.0); MEAN CORPUSCULAR VOLUME 96.7 fL (79-99); MONOCYTES % (AUTO) 11.5 % (3.0-13.0); NEUTROPHILS % (AUTO) 68.3 % (40.0-77.0); PLATELET COUNT (AUTO) 236 K/uL (130-400); RED BLOOD CELL COUNT(AUTO) 3.86 MIL/uL (4.50-6.20); RED CELL DISTRIBUTION WIDTH 12.8 % (11.0-15.5); WHITE BLOOD COUNT (AUTO) 10.3 K/uL (4.8-10.8)
[2019-01-11 09:31] LABS: CARBON DIOXIDE 29 mmol/L (21-32); CHLORIDE 104 mmol/L (101-111); CREATININE 1.3 mg/dL (0.5-1.5); GLOMERULAR FILTR. RATE CALC 58 mL/min (>60); GLUCOSE,RANDOM 179 mg/dL (70-105); PHOSPHORUS 3.5 mg/dL (2.5-4.9); POTASSIUM 3.4 mmol/L (3.5-5.1); SODIUM SERUM 140 mmol/L (136-145); UREA NITROGEN, BLOOD 19 mg/dL (7-18)
[2019-01-11 09:53] LABS: THYROID STIMULATING HORMONE < 0.01 uIU/mL (0.36-3.74)
[2019-01-11] MEDS: HYDROCHLOROTHIAZIDE 25 MG TABLET PO SCH (10:21)
[2019-01-11] MEDS: MAGNESIUM 2GM PREMIX 50ML 50 ML IV PRN (10:45)
--- NOTE | 2019-01-11 11:35 | NUR ---
Nutrition intervention: Nutrition notification for LOS. Pt admitted for RESP Distress. Pt is s/p trach placement in this admission. Bedside evaluation done by [facility] with recommendations of Mechanical soft diet. Pt with No BM since 01/04/19, RN Andry notified of RN concerns states pt has not had food since admission, diet started 01/10 but will monitor for BM. Recommendations: Continue current diet therapy. Monitor I/O. Consult RD as nutrition concerns arise. Addendum: 01/11/19 at [address] Amended: Links added.
[2019-01-11] MEDS: IPRATROPIUM 0.5 MG/2.5 ML INH IH SCH ×3 (11:49→23:27)
--- NOTE | 2019-01-11 14:00 | NUR ---
PMV TRIAL Pt WITH GOOD TOLERANCE OF PMV. Pt WITH NO OVERT S/S OF ASPIRATION DURING THE SESSION. Pt VOICING IN 3-4 WORD UTTERANCES. Pt COMPLETED DIAPHRAGMATIC BREATHING EXERCISES WITH 70% ACCURACY. Pt INTELLIGIBLE AT 80% ACCURACY. Pt AND VERBALIZED UNDERSTANDING OF CLEANING INSTRUCTION AND USE OF PMV. Addendum: 01/12/19 at 0812 by MARCELO HILL [facility] Amended: Links added.
[2019-01-11] MEDS: LEVOFLOXACIN 750 MG/D5W 150 ML 150 ML IV SCH (14:13)
--- NOTE | 2019-01-11 18:25 | NUR ---
ELIZABETH PLAN VISITED WITH PATIENT AND SPOUSE. EXPLAINED THAT I HAD TALKED TO [facility]. PER [facility] THEY DO NOT DO TRACHE CARE. THEY WANT PATIENT TO GO TO FACILITY. SAID THEY WOULD BE WILLING TO GO TO [facility] FOR REHAB. Addendum: 01/11/19 at 1832 by MILAGROS BECKER RN CM Amended: Links added.
[2019-01-11] MEDS: CITALOPRAM 20 MG TABLET PO SCH (21:07)
[2019-01-11] MEDS: TRAZODONE HCL 50 MG TAB PO SCH (21:07)
[2019-01-11] MEDS: SIMVASTATIN 20 MG TABLET PO SCH (21:07)
[2019-01-11] MEDS: FAMOTIDINE 20MG TAB 20 MG TAB PO SCH (21:08)
[2019-01-11] MEDS: LATANOPROST 2.5 ML DROPS OU SCH ×2 (21:08)
[2019-01-12 04:00] VITALS: BP 156/97
[2019-01-12] MEDS: VANCOMYCIN 1GM+NS 250ML 250 ML IV SCH ×3 (06:13→23:02)
[2019-01-12] MEDS: MAGNESIUM 2GM PREMIX 50ML 50 ML IV PRN (06:14)
[2019-01-12] MEDS: LEVOTHYROXINE 150 MCG TABLET PO SCH (06:14)
[2019-01-12] MEDS: INSULIN HUMULIN R 100 UNIT/ML 3ML SQ SCH ×4 (06:14→21:00)
[2019-01-12] MEDS: IPRATROPIUM 0.5 MG/2.5 ML INH IH SCH ×4 (06:47→23:01)
[2019-01-12] MEDS: ACETYLCYSTEINE 20% 200MG/ML 4ML VIAL IH SCH ×4 (06:48→23:02)
[2019-01-12 07:47] VITALS: BP_SYST 158; BP_SYST 18; BP_DIAS 98
--- NOTE | 2019-01-12 08:45 | NUR ---
AM ASSESSMENT PT SITTING IN BED, WATCHING TV. SOB ON EXERTION. (+) SECRETIONS, (+) FREQUENT SUCTION W/[place]. O2 TC @ 21%. TOLERATING WELL. DENIES CHEST PAIN OR DISCOMFORT. DENIES PALPITATIONS. TELE: SR 70s. DENIES N/V AND/OR DIARRHEA. UP TO CHAIR & AMBULATE W/ASSISTANCE. INSTRUCTED TO CALL FOR ASSISTANCE. CALL NIXON W/IN REACH.
[2019-01-12] MEDS: LEVOFLOXACIN 750 MG/D5W 150 ML 150 ML IV SCH (09:24)
[2019-01-12] MEDS: BUSPIRONE HCL 5 MG TABLET PO SCH ×2 (09:24→23:02)
[2019-01-12] MEDS: METFORMIN HCL 500 MG TABLET PO SCH ×3 (09:24→17:57)
[2019-01-12] MEDS: AMLODIPINE BESYLATE 5 MG TAB PO SCH (09:24)
[2019-01-12] MEDS: HYDROCHLOROTHIAZIDE 25 MG TABLET PO SCH (09:24)
[2019-01-12] MEDS: PREDNISONE 20 MG TABLET PO SCH (09:24)
[2019-01-12] MEDS: HYDRALAZINE HCL 25 MG TABLET PO SCH ×3 (09:24→23:03)
[2019-01-12] MEDS: SCOPOLAMINE HYDROBROMIDE 1 EACH ADH..PATCH TD SCH (09:39)
[2019-01-12] MEDS ORDERED: POTASSIUM CHLORIDE 20MEQ/100ML 100 ML IV PRN (10:00)
[2019-01-12] MEDS ORDERED: LIDOCAINE HCL-MPF 1% 2ML VIAL IV PRN (10:00)
[2019-01-12 10:19] LABS: BASOPHILS % (AUTO) 0.3 % (0.0-5.0); EOSINOPHILS % (AUTO) 1.2 % (0.0-8.0); HEMATOCRIT 38.6 % (42-54); MEAN CORPUSCULAR HEMOGLOBIN 32.8 pg (27.0-33.0); MEAN CORPUSCULAR HGB CONC 34.3 g/dL (32.0-36.0); MEAN CORPUSCULAR VOLUME 95.5 fL (79-99); MONOCYTES % (AUTO) 12.5 % (3.0-13.0); NUCLEATED RED BLOOD CELLS 0.1 % (0.0-0.19); PLATELET COUNT (AUTO) 277 K/uL (130-400); RED BLOOD CELL COUNT(AUTO) 4.05 MIL/uL (4.50-6.20); RED CELL DISTRIBUTION WIDTH 13.1 % (11.0-15.5); WHITE BLOOD COUNT (AUTO) 10.3 K/uL (4.8-10.8)
[2019-01-12 10:31] LABS: CREATININE 1.4 mg/dL (0.5-1.5); POTASSIUM 3.4 mmol/L (3.5-5.1)
[2019-01-12 10:32] LABS: MAGNESIUM 1.9 mg/dL (1.80-2.40)
[2019-01-12] MEDS: POTASSIUM CHLORIDE 10% ELIXIR 20 MEQ/15 ML UDCUP PO PRN ×2 (11:52→13:03)
[2019-01-12 11:57] VITALS: BP 127/89
--- NOTE | 2019-01-12 12:57 | NUR ---
TRANSFER TELEPHONE REPORT GIVEN TO MONICA STRONG.
--- NOTE | 2019-01-12 13:25 | NUR ---
TRANSFER PT TRANSFERRED TO 332 VIA WC BY Shea AVILA PCP. RESP THERAPIST MADE AWARE OF TRANSFER.
--- NOTE | 2019-01-12 13:34 | NUR ---
DC PLAN VISITED WITH FAMILY AND PATIENT. SAID OKAY TO SEND REFERRAL TO [facility] DID NOT SEND YESTERDAY DUE TO THE FACT THAT THEY WANTED TO SEE IF PATIENT WOULD NOT NEED TRACHE THEY THOUGHT IT WOULD BE IN FOR ONLY A COUPLE OF DAYS AND THEN REMOVED. WANTED TO WAIT FOR PULMOLOGY DOCTOR TO TELL THEM HOW LONG. DR. ALEXIS SPOKE TO THEM SAID IT WAS GOING TO STAY A WHILE. INFO SENT TO [facility] PENDING AUTH. Addendum: 01/12/19 at 1341 by MILAGROS BECKER RN CM Amended: Links added.
[2019-01-12 16:03] VITALS: BP 131/90
[2019-01-12] MEDS: LACTULOSE 20 GM/30 ML UDCUP PO SCH (17:45)
[2019-01-12 19:28] VITALS: BP 143/91
--- NOTE | 2019-01-12 20:15 | NUR ---
TRANSFER Received report from nurse Eli from second floor. Patient stable. Trach collar on room air. No issues. Denies needs.
[2019-01-12] MEDS: LATANOPROST 2.5 ML DROPS OU SCH (21:00)
[2019-01-12 23:00] VITALS: BP 164/100
[2019-01-12] MEDS: SIMVASTATIN 20 MG TABLET PO SCH (23:02)
[2019-01-12] MEDS: TRAZODONE HCL 50 MG TAB PO SCH (23:02)
[2019-01-12] MEDS: FAMOTIDINE 20MG TAB 20 MG TAB PO SCH (23:03)
[2019-01-12] MEDS: CITALOPRAM 20 MG TABLET PO SCH (23:03)
[2019-01-13 04:00] VITALS: BP 155/95
[2019-01-13] MEDS: IPRATROPIUM 0.5 MG/2.5 ML INH IH SCH ×4 (06:26→23:03)
[2019-01-13] MEDS: ACETYLCYSTEINE 20% 200MG/ML 4ML VIAL IH SCH ×4 (06:26→23:03)
[2019-01-13] MEDS: LEVOTHYROXINE 150 MCG TABLET PO SCH (06:30)
[2019-01-13] MEDS: INSULIN HUMULIN R 100 UNIT/ML 3ML SQ SCH ×4 (06:53→20:22)
[2019-01-13 07:02] LABS: BASOPHILS % (AUTO) 0.2 % (0.0-5.0); EOSINOPHILS % (AUTO) 1.6 % (0.0-8.0); MEAN CORPUSCULAR HEMOGLOBIN 33.4 pg (27.0-33.0); MEAN CORPUSCULAR HGB CONC 34.8 g/dL (32.0-36.0); MEAN CORPUSCULAR VOLUME 95.8 fL (79-99); MONOCYTES % (AUTO) 10.5 % (3.0-13.0); NEUTROPHILS % (AUTO) 62.7 % (40.0-77.0); NUCLEATED RED BLOOD CELLS 0.1 % (0.0-0.19); PLATELET COUNT (AUTO) 282 K/uL (130-400); RED BLOOD CELL COUNT(AUTO) 3.86 MIL/uL (4.50-6.20); RED CELL DISTRIBUTION WIDTH 12.9 % (11.0-15.5); WHITE BLOOD COUNT (AUTO) 9.8 K/uL (4.8-10.8)
[2019-01-13 07:12] LABS: CREATININE 1.4 mg/dL (0.5-1.5); MAGNESIUM 1.3 mg/dL (1.80-2.40); PHOSPHORUS 3.7 mg/dL (2.5-4.9); POTASSIUM 3.5 mmol/L (3.5-5.1)
[2019-01-13 08:10] VITALS: BP 149/88
[2019-01-13] MEDS: LACTULOSE 20 GM/30 ML UDCUP PO SCH (09:00)
[2019-01-13] MEDS: VANCOMYCIN 1GM+NS 250ML 250 ML IV SCH ×2 (11:26→20:30)
[2019-01-13] MEDS: POTASSIUM CHLORIDE 10% ELIXIR 20 MEQ/15 ML UDCUP PO PRN (11:30)
[2019-01-13] MEDS: AMLODIPINE BESYLATE 5 MG TAB PO SCH (11:30)
[2019-01-13] MEDS: PREDNISONE 20 MG TABLET PO SCH (11:30)
[2019-01-13] MEDS: METFORMIN HCL 500 MG TABLET PO SCH ×3 (11:30→18:57)
[2019-01-13] MEDS: HYDRALAZINE HCL 25 MG TABLET PO SCH ×3 (11:31→20:32)
[2019-01-13] MEDS: FAMOTIDINE 20MG TAB 20 MG TAB PO SCH ×2 (11:31→20:32)
[2019-01-13] MEDS: BUSPIRONE HCL 5 MG TABLET PO SCH ×2 (11:31→20:31)
[2019-01-13] MEDS: HYDROCHLOROTHIAZIDE 25 MG TABLET PO SCH (11:31)
[2019-01-13] MEDS: MAGNESIUM 2GM PREMIX 50ML 50 ML IV PRN ×2 (11:32→15:28)
[2019-01-13 11:56] VITALS: BP 146/87
[2019-01-13] MEDS: ACETAMINOPHEN 325 MG TAB PO PRN (11:56)
[2019-01-13] MEDS: LEVOFLOXACIN 750 MG/D5W 150 ML 150 ML IV SCH (13:35)
[2019-01-13 16:34] VITALS: BP 155/97
[2019-01-13 19:43] VITALS: BP 138/87
--- NOTE | 2019-01-13 19:50 | NUR ---
PM Assessment Received pt with no family at the bedside, trach on T-collar at 28% oxygen, calm, noted able to talk by manually covering his trach by his finger. Routine assessment done, plan of care discuss, pt claimed able to cough out phlegm, noted thick slightly yellowish in color. Pt noted independent in suctioning himself orally using a Yankauer. Trach care rendered at this time aseptically, trach site noted slightly red, cleansed using hydrogen peroxide, applied soft wick gauze to avoid thick phlegm be in contact with the skin, noted dried at this time, t-collar mask washed with soap & water as noted nasty from dried phlegm. Also requested career resource technician - Braeden to please change pt trach collar, agreed. Pt noted coughing on & off, on breathing treatment with CPT.
[2019-01-13] MEDS: SIMVASTATIN 20 MG TABLET PO SCH (20:31)
[2019-01-13] MEDS: TRAZODONE HCL 50 MG TAB PO SCH (20:32)
[2019-01-13] MEDS: CITALOPRAM 20 MG TABLET PO SCH (20:32)
[2019-01-13] MEDS: LATANOPROST 2.5 ML DROPS OU SCH ×2 (20:45→21:01)
[2019-01-13 23:25] VITALS: BP 123/70
[2019-01-14 04:08] VITALS: BP 137/89
[2019-01-14 05:54] LABS: MAGNESIUM 1.8 mg/dL (1.80-2.40); POTASSIUM 3.9 mmol/L (3.5-5.1)
[2019-01-14] MEDS: IPRATROPIUM 0.5 MG/2.5 ML INH IH SCH ×4 (06:38→23:30)
[2019-01-14] MEDS: ACETYLCYSTEINE 20% 200MG/ML 4ML VIAL IH SCH ×4 (06:38→23:30)
[2019-01-14] MEDS: INSULIN HUMULIN R 100 UNIT/ML 3ML SQ SCH ×4 (06:57→21:00)
[2019-01-14 07:59] VITALS: BP 113/75
[2019-01-14] MEDS ORDERED: GUAIFENESIN SUGAR-FREE 100 MG/5 ML UDCUP PO SCH ×2 (08:00→12:00)
[2019-01-14] MEDS: BUSPIRONE HCL 5 MG TABLET PO SCH ×2 (10:32→21:03)
[2019-01-14] MEDS: LEVOTHYROXINE 150 MCG TABLET PO SCH (10:32)
[2019-01-14] MEDS: PREDNISONE 20 MG TABLET PO SCH (10:32)
[2019-01-14] MEDS: AMLODIPINE BESYLATE 5 MG TAB PO SCH (10:32)
[2019-01-14] MEDS: METFORMIN HCL 500 MG TABLET PO SCH ×3 (10:32→18:25)
[2019-01-14] MEDS: HYDROCHLOROTHIAZIDE 25 MG TABLET PO SCH (10:32)
[2019-01-14] MEDS: FAMOTIDINE 20MG TAB 20 MG TAB PO SCH ×2 (10:32→21:03)
[2019-01-14] MEDS: HYDRALAZINE HCL 25 MG TABLET PO SCH ×3 (10:50→21:05)
[2019-01-14] MEDS: LEVOFLOXACIN 750 MG/D5W 150 ML 150 ML IV SCH (12:28)
[2019-01-14 14:18] VITALS: BP 146/87
[2019-01-14] MEDS: VANCOMYCIN 1GM+NS 250ML 250 ML IV SCH ×2 (14:24→21:03)
[2019-01-14 16:28] VITALS: BP 133/87
[2019-01-14] MEDS ORDERED: [UNRECOGNIZED DRUG - OTHER] IM SCH (18:00)
[2019-01-14] MEDS: MAGNESIUM 2GM PREMIX 50ML 50 ML IV PRN (18:26)
--- NOTE | 2019-01-14 18:46 | NUR ---
SOMATULINE DEPOT 90mg INJECTION Administered home medication as directed by instructions accompanying package. Patient denied any problem. provided medicatio from home in sealed package. Refrigeration directions followed per package as well.
[2019-01-14 19:59] VITALS: BP 133/77
[2019-01-14] MEDS: LATANOPROST 2.5 ML DROPS OU SCH (21:00)
[2019-01-14] MEDS: GUAIFENESIN SUGAR-FREE 100 MG/5 ML UDCUP PO SCH (21:03)
[2019-01-14] MEDS: MAGNESIUM OXIDE 400 MG TABLET PO SCH (21:04)
[2019-01-14] MEDS: TRAZODONE HCL 50 MG TAB PO SCH (21:04)
[2019-01-14] MEDS: SIMVASTATIN 20 MG TABLET PO SCH (21:05)
[2019-01-14] MEDS: CITALOPRAM 20 MG TABLET PO SCH (21:05)
[2019-01-14 23:19] VITALS: BP 137/87
[2019-01-15] MEDS: GUAIFENESIN SUGAR-FREE 100 MG/5 ML UDCUP PO SCH ×6 (00:12→22:10)
[2019-01-15 04:04] VITALS: BP 119/86
[2019-01-15 04:57] LABS: BASOPHILS % (AUTO) 0.3 % (0.0-5.0); EOSINOPHILS % (AUTO) 0.6 % (0.0-8.0); LYMPHOCYTES % (AUTO) 18.7 % (21.0-51.0); MEAN CORPUSCULAR HEMOGLOBIN 33.1 pg (27.0-33.0); MEAN CORPUSCULAR HGB CONC 34.7 g/dL (32.0-36.0); MEAN CORPUSCULAR VOLUME 95.3 fL (79-99); MONOCYTES % (AUTO) 7.7 % (3.0-13.0); NEUTROPHILS % (AUTO) 72.7 % (40.0-77.0); PLATELET COUNT (AUTO) 337 K/uL (130-400); RED CELL DISTRIBUTION WIDTH 12.7 % (11.0-15.5); WHITE BLOOD COUNT (AUTO) 11.3 K/uL (4.8-10.8)
[2019-01-15 05:09] LABS: CREATININE 1.5 mg/dL (0.5-1.5); MAGNESIUM 1.8 mg/dL (1.80-2.40); POTASSIUM 3.5 mmol/L (3.5-5.1)
[2019-01-15] MEDS: IPRATROPIUM 0.5 MG/2.5 ML INH IH SCH ×4 (06:25→23:08)
[2019-01-15] MEDS: ACETYLCYSTEINE 20% 200MG/ML 4ML VIAL IH SCH ×4 (06:25→23:08)
[2019-01-15] MEDS: LEVOTHYROXINE 150 MCG TABLET PO SCH (06:32)
[2019-01-15] MEDS: INSULIN HUMULIN R 100 UNIT/ML 3ML SQ SCH ×4 (06:33→21:00)
[2019-01-15 07:00] VITALS: BP 151/76
[2019-01-15] MEDS: MAGNESIUM OXIDE 400 MG TABLET PO SCH ×2 (09:00→21:54)
[2019-01-15] MEDS: BUSPIRONE HCL 5 MG TABLET PO SCH ×2 (09:54→21:54)
[2019-01-15] MEDS: HYDRALAZINE HCL 25 MG TABLET PO SCH ×3 (09:54→21:00)
[2019-01-15] MEDS: PREDNISONE 20 MG TABLET PO SCH (09:54)
[2019-01-15] MEDS: HYDROCHLOROTHIAZIDE 25 MG TABLET PO SCH (09:54)
[2019-01-15] MEDS: FAMOTIDINE 20MG TAB 20 MG TAB PO SCH ×2 (09:54→21:53)
[2019-01-15] MEDS: METFORMIN HCL 500 MG TABLET PO SCH ×3 (09:54→17:00)
[2019-01-15] MEDS: AMLODIPINE BESYLATE 5 MG TAB PO SCH (09:55)
[2019-01-15 12:00] VITALS: BP 113/77
--- NOTE | 2019-01-15 12:00 | NUR ---
CM note: regarding LTAC CM spoke to pt and family regarding LTAC discussion w/Jessa. As per family, they were just asking info regarding LTAC, explained purpose for LTAC placement and what it is for vs SNF. Per family pt to follow through w/Norwegian Benson as planned. Aware pt currently pending [facility] approval. Primary nurse aware. CM to cont to follow up.
[2019-01-15] MEDS: SCOPOLAMINE HYDROBROMIDE 1 EACH ADH..PATCH TD SCH (12:41)
[2019-01-15] MEDS: LEVOFLOXACIN 750 MG/D5W 150 ML 150 ML IV SCH (12:42)
[2019-01-15] MEDS: VANCOMYCIN 1GM+NS 250ML 250 ML IV SCH ×2 (13:04→22:10)
--- NOTE | 2019-01-15 13:16 | NUR ---
PMV TRIAL Pt WITH GOOD TOLERANCE OF PMV. Pt WITH NO OVERT S/S OF ASPIRATION DURING THE SESSION. Pt VOICING IN 3-4 WORD UTTERANCES. Pt COMPLETED DIAPHRAGMATIC BREATHING EXERCISES WITH 70% ACCURACY. Pt INTELLIGIBLE AT 80% ACCURACY. Pt COMPLETED PHONATION EXERCISES WITH 80% ACCURACY. Pt REQUIRED VERBAL AND TACTILE CUES FOR ADEQUATE PHONATION DURING EXERCISES. Pt DEMONSTRATED ABILITY TO PLACE AND REMOVE PMV INDEPENDENTLY. Pt AND VERBALIZED UNDERSTANDING OF CLEANING INSTRUCTION AND USE OF PMV. Addendum: 01/15/19 at 1318 by MARCELO HILL [facility] Amended: Links added.
--- NOTE | 2019-01-15 15:10 | NUR ---
CM Note: Rafa Benson pending ins auth Spoke to Silvia canada/Rafa Benson . Stated received updated clinicals this morning and forwarded to [facility] already. Pt still pending ins auth at this time. EMS arranged and faxed for today in case pt receive auth, primary nurse to call [facility] once pt ready to DC. Primary nurse aware. CM to cont to follow up.
[2019-01-15 16:00] VITALS: BP 133/94
[2019-01-15 20:00] VITALS: BP 97/71
[2019-01-15] MEDS: POTASSIUM CHLORIDE 10% ELIXIR 20 MEQ/15 ML UDCUP PO PRN (20:12)
[2019-01-15] MEDS: MAGNESIUM 2GM PREMIX 50ML 50 ML IV PRN (20:13)
[2019-01-15] MEDS: LATANOPROST 2.5 ML DROPS OU SCH (21:00)
[2019-01-15] MEDS: CITALOPRAM 20 MG TABLET PO SCH (21:53)
[2019-01-15] MEDS: TRAZODONE HCL 50 MG TAB PO SCH (21:53)
[2019-01-15] MEDS: SIMVASTATIN 20 MG TABLET PO SCH (21:53)
[2019-01-15] MEDS: FLUTICASONE PROPIONATE 50MCG/SPRAY 16 GM BOTTLE EN SCH (22:16)
[2019-01-16] VITALS: BP 111/84
[2019-01-16 04:00] VITALS: BP 105/81
[2019-01-16] MEDS: GUAIFENESIN SUGAR-FREE 100 MG/5 ML UDCUP PO SCH ×6 (04:00→21:44)
[2019-01-16 05:15] LABS: HEMATOCRIT 38.3 % (42-54); MEAN CORPUSCULAR HGB CONC 34.5 g/dL (32.0-36.0); MEAN CORPUSCULAR VOLUME 95.6 fL (79-99); PLATELET COUNT (AUTO) 334 K/uL (130-400); RED BLOOD CELL COUNT(AUTO) 4.01 MIL/uL (4.50-6.20); RED CELL DISTRIBUTION WIDTH 12.9 % (11.0-15.5); WHITE BLOOD COUNT (AUTO) 9.4 K/uL (4.8-10.8)
[2019-01-16 05:23] LABS: CREATININE 1.7 mg/dL (0.5-1.5); MAGNESIUM 1.9 mg/dL (1.80-2.40); POTASSIUM 3.7 mmol/L (3.5-5.1)
[2019-01-16] MEDS: INSULIN HUMULIN R 100 UNIT/ML 3ML SQ SCH ×4 (05:56→21:00)
[2019-01-16] MEDS: LEVOTHYROXINE 150 MCG TABLET PO SCH (06:25)
[2019-01-16] MEDS: POTASSIUM CHLORIDE 10% ELIXIR 20 MEQ/15 ML UDCUP PO PRN (06:25)
[2019-01-16] MEDS: MAGNESIUM 2GM PREMIX 50ML 50 ML IV PRN (06:25)
[2019-01-16] MEDS: IPRATROPIUM 0.5 MG/2.5 ML INH IH SCH ×3 (06:33→19:06)
[2019-01-16] MEDS: ACETYLCYSTEINE 20% 200MG/ML 4ML VIAL IH SCH ×3 (06:33→19:06)
[2019-01-16 07:00] VITALS: BP 145/86
[2019-01-16] MEDS: FLUTICASONE PROPIONATE 50MCG/SPRAY 16 GM BOTTLE EN SCH (09:00)
[2019-01-16] MEDS: PREDNISONE 20 MG TABLET PO SCH (09:03)
[2019-01-16] MEDS: MAGNESIUM OXIDE 400 MG TABLET PO SCH ×2 (09:03→21:44)
[2019-01-16] MEDS: VANCOMYCIN 1GM+NS 250ML 250 ML IV SCH ×2 (09:03→21:00)
[2019-01-16] MEDS: AMLODIPINE BESYLATE 5 MG TAB PO SCH (09:03)
[2019-01-16] MEDS: METFORMIN HCL 500 MG TABLET PO SCH (09:03)
[2019-01-16] MEDS: BUSPIRONE HCL 5 MG TABLET PO SCH ×2 (09:04→21:44)
[2019-01-16] MEDS: FAMOTIDINE 20MG TAB 20 MG TAB PO SCH ×2 (09:04→21:44)
[2019-01-16] MEDS: HYDROCHLOROTHIAZIDE 25 MG TABLET PO SCH (09:04)
[2019-01-16] MEDS: HYDRALAZINE HCL 25 MG TABLET PO SCH ×3 (09:04→21:44)
--- NOTE | 2019-01-16 09:17 | NUR ---
FOLLOW UP. DIET UPGRADE Pt HAS BEEN TOLERATING MECHANICAL SOFT/CHOPPED DIET WITH THIN LIQUIDS. Pt WITH NO OVERT S/S OF ASPIRATION WITH SOLID TRIALS PROVIDED BY WIFE. BRISCOE FOR DIET ADVANCEMENT AT THIS TIME. SALES MANAGEMENT TRAINEE SPOKE WITH LEAD HANDLER DERRICK. PLEASE UPDATE DIET TO REGULAR TEXTURE, THIN LIQUIDS, USE PMV DURING P.O. Addendum: 01/16/19 at 0919 by MARCELO HILL, [facility] Amended: Links added.
[2019-01-16 11:00] VITALS: BP 113/67
--- NOTE | 2019-01-16 11:19 | NUR ---
CM Note: Mongolian Benson pending [facility] ins auth Spoke to Hank canada/Rafa Benson, pt currently still pending ins auth w/[facility]. Primary nurse aware. CM to cont to follow up.
[2019-01-16] MEDS ORDERED: SODIUM CHLORIDE 0.9% 1000ML 1,000 ML IV SCH (12:03)
[2019-01-16] MEDS: LEVOFLOXACIN 750 MG/D5W 150 ML 150 ML IV SCH (12:58)
--- NOTE | 2019-01-16 13:37 | NUR ---
PMV TRIAL Pt WITH PMV IN PLACE UPON sandblasting supervisor ARRIVAL. Pt WITH GOOD TOLERANCE OF PMV. Pt WITH NO OVERT S/S OF ASPIRATION DURING THE SESSION, DIET UPGRADE AT THIS TIME. Pt VOICING IN 3-4 WORD UTTERANCES. Pt COMPLETED DIAPHRAGMATIC BREATHING EXERCISES WITH 70% ACCURACY. Pt INTELLIGIBLE AT 80% ACCURACY. Pt COMPLETED PHONATION EXERCISES WITH 80% ACCURACY. Pt REQUIRED VERBAL AND TACTILE CUES FOR ADEQUATE PHONATION DURING EXERCISES. Pt DEMONSTRATED ABILITY TO PLACE AND REMOVE PMV INDEPENDENTLY. Pt AND VERBALIZED UNDERSTANDING OF CLEANING INSTRUCTION AND USE OF PMV.Pt REPORTS USE OF PMV FOR 4 HOURS YESTERDAY. CURRENTLY Pt WITH PMV FOR 2 HOURS. PT ENCOURAGED TO USE PMV TOLERATED. TALK SHOW HOST WILL CONTINUE TO FOLLOW Pt. Addendum: 01/16/19 at 1339 by MARCELO HILL, [facility] Amended: Links added.
--- NOTE | 2019-01-16 15:59 | NUR ---
CM Note: Rafa Benson ins auth and acceptance CM spoke to Hank canada/Rafa Benson, pt has ins auth and acceptance. EMS arranged and faxed for today, primary nurse to call [facility] once pt ready to DC. Primary nurse aware. CM to cont to follow up.
[2019-01-16] MEDS ORDERED: FLU VACC QS2019-20 36MOS UP/PF 60 MCG/0.5 ML ML IM ONE (16:45)
--- NOTE | 2019-01-16 17:44 | NUR ---
REPORT CALL TO MELODY DEL ROSARIO LVN OF [facility].
--- NOTE | 2019-01-16 19:55 | NUR ---
CALL EMS TO FOLLOW UP WHAT TIME THEY WILL SENIOR TAX ANALYST THE PATIENT. THEY VERBALIZED THAT HE IS THE NEXT IN THE LIST AND THEY JUST CLEARING OUT THE EMERGENCY CALLS AND THEY WILL SEND SOMEBODY TO PICK HIM UP
[2019-01-16 20:21] VITALS: BP 117/86
[2019-01-16] MEDS: LATANOPROST 2.5 ML DROPS OU SCH (21:00)
--- NOTE | 2019-01-16 21:36 | NUR ---
ems pending called ems dispatcher regarding pending transfer, per dispatcher have two more transfer before this one, informed of patient of pending transfer
[2019-01-16] MEDS: CITALOPRAM 20 MG TABLET PO SCH (21:44)
[2019-01-16] MEDS: TRAZODONE HCL 50 MG TAB PO SCH (21:44)
--- NOTE | 2019-01-16 22:15 | NUR ---
[facility], trache collar humidified as ordered, no respiratory distress
== END 2019-01-16 22:15 | DRG 4 ==
LOC: EDH 12:59 → EDHIP 15:29 → 2BH 17:48 → 2DH 01-09 23:14 → 3AH 01-12 13:46
PROVIDERS: ADMIT Internal Medicine; ATTEND Internal Medicine
PROC: 5A1945Z Respiratory Ventilation, 24-96 Consecutive Hours (ICD-10-PCS; 2019-01-04)
PROC: 30233M1 Transfusion of Nonautologous Plasma Cryoprecipitate into Peripheral Vein, Percutaneous Approach (ICD-10-PCS; 2019-01-04)
PROC: 0WJ3XZZ Inspection of Oral Cavity and Throat, External Approach (ICD-10-PCS; 2019-01-04)
PROC: 0B110F4 Bypass Trachea to Cutaneous with Tracheostomy Device, Open Approach (ICD-10-PCS; principal; 2019-01-04 15:20)
DX: A41.9 Sepsis, unspecified organism (principal); J96.01 Acute respiratory failure with hypoxia; J96.02 Acute respiratory failure with hypercapnia; E87.1 Hypo-osmolality and hyponatremia; M62.82 Rhabdomyolysis; J05.10 Acute epiglottitis without obstruction; J95.851 Ventilator associated pneumonia; N17.9 Acute kidney failure, unspecified; J81.1 Chronic pulmonary edema; T78.3XXA Angioneurotic edema, initial encounter; E66.01 Morbid (severe) obesity due to excess calories; R65.20 Severe sepsis without septic shock; T46.4X5A Adverse effect of angiotensin-converting-enzyme inhibitors, initial encounter; E11.65 Type 2 diabetes mellitus with hyperglycemia; T88.4XXA Failed or difficult intubation, initial encounter; Z68.33 Body mass index [BMI] 33.0-33.9, adult; G47.33 Obstructive sleep apnea (adult) (pediatric); F17.210 Nicotine dependence, cigarettes, uncomplicated; Z96.659 Presence of unspecified artificial knee joint; Z90.49 Acquired absence of other specified parts of digestive tract; Z79.899 Other long term (current) drug therapy; Z88.8 Allergy status to other drugs, medicaments and biological substances; Z79.52 Long term (current) use of systemic steroids; Y84.8 Other medical procedures as the cause of abnormal reaction of the patient, or of later complication, without mention of misadventure at the time of the procedure; Y82.8 Other medical devices associated with adverse incidents; Y92.89 Other specified places as the place of occurrence of the external cause; Y83.8 Other surgical procedures as the cause of abnormal reaction of the patient, or of later complication, without mention of misadventure at the time of the procedure; J40 Bronchitis, not specified as acute or chronic; E11.22 Type 2 diabetes mellitus with diabetic chronic kidney disease; I12.9 Hypertensive chronic kidney disease with stage 1 through stage 4 chronic kidney disease, or unspecified chronic kidney disease; N18.3 Chronic kidney disease, stage 3 (moderate); E87.6 Hypokalemia; K59.00 Constipation, unspecified; E83.42 Hypomagnesemia
CPT/HCPCS: 31500; 36415; 36600; 70360; 70490; 71045; 80048; 80076; 80202; 82040; 82550; 82803; 82948; 83036; 83605; 83735; 83880; 84100; 84132; 84145; 84443; 84484; 85025; 85027; 85610; 85730; 86140; 86850; 86900; 86901; 86927; 87040; 87071; 87205; 92507; 92597; 92610; 93005; 94002; 94003; 94640; 94664; 94667; 94668; 97039; 99291; A4344; G0378; J0171; J0330; J0360; J1200; J1650; J1815; J1940; J1956; J2060; J2250; J2370; J2704; J2920; J2930; J3010; J3370; J3475; J3490; J7030; J7608; P9017

== ENCOUNTER → 2019-04-26 | Outpatient (CLI) | payer OTHER ==
[~2019-04-26] MED LIST changes: -ASPI-1012 PO; +ASPI-555 PO; +BUSP10TA3 PO; -ETOMIDATE 2 MG/ML 10 ML VIAL ONE; +HYDR25TA PO; -LISI-613 PO; +METF-446 PO; -NAPR-1023 PO; -RANI-643 PO; +RANI-655 PO; +SILD100T PO; -SUCCINYLCHOLINE CHLORIDE 20 MG/ML 10 ML VIAL ONE
== END | disposition home or self-care (01) ==
LOC: SHCH 08:59
PROVIDERS: ATTEND Internal Medicine Cardiovascular Disease
DX: I35.8 Other nonrheumatic aortic valve disorders (principal); I10 Essential (primary) hypertension; E22.0 Acromegaly and pituitary gigantism
CPT/HCPCS: 93306; 93356

== ENCOUNTER → 2019-06-15 | Outpatient (CLI) | payer OTHER | END | disposition home or self-care (01) | LOC: RAH 08:50 | PROVIDERS: ATTEND Internal Medicine Cardiovascular Disease | DX: R06.00 Dyspnea, unspecified (principal); R53.83 Other fatigue; R06.02 Shortness of breath | CPT/HCPCS: 78452; 93017; 96374; A9500 ×2 ==